=== PATIENT | male | born 1955 | race African-American/Black ===

== ENCOUNTER 2021-08-27 15:05 | Outpatient (CLI) | payer MEDICARE | END 2021-08-27 15:06 | disposition home or self-care (01) | LOC: CSHCT 15:05 | PROVIDERS: ATTEND Family Medicine | DX: Z12.2 Encounter for screening for malignant neoplasm of respiratory organs (principal); F17.200 Nicotine dependence, unspecified, uncomplicated | CPT/HCPCS: 71271 ==

== ENCOUNTER 2022-09-03 07:11 | Outpatient (CLI) | payer MEDICARE | END 2022-09-03 07:12 | disposition home or self-care (01) | LOC: CSHCT 07:11 | PROVIDERS: ATTEND Nurse Practitioner Family | DX: Z12.2 Encounter for screening for malignant neoplasm of respiratory organs (principal); F17.210 Nicotine dependence, cigarettes, uncomplicated | CPT/HCPCS: 71271 ==

== ENCOUNTER 2023-10-12 07:49 | Outpatient (CLI) | payer MEDICARE | END 2023-10-12 07:50 | disposition home or self-care (01) | LOC: CSHMRI 07:49 | PROVIDERS: ATTEND Family Medicine | DX: M25.562 Pain in left knee (principal); M47.22 Other spondylosis with radiculopathy, cervical region; M17.12 Unilateral primary osteoarthritis, left knee; M50.10 Cervical disc disorder with radiculopathy, unspecified cervical region; M48.02 Spinal stenosis, cervical region | CPT/HCPCS: 72040; 72141 ==